=== PATIENT | male | born 1985 | race Caucasian/White ===

== ENCOUNTER 2021-01-06 15:35 | Emergency (ER) | payer OTHER ==
[~2021-01-06] VITALS: Ht 175.3 cm; Wt 81.7 kg
== END 2021-01-06 17:05 | disposition home or self-care (01) ==
LOC: ED 15:35
DX: T67.5XXA Heat exhaustion, unspecified, initial encounter (principal); E86.0 Dehydration; F17.200 Nicotine dependence, unspecified, uncomplicated
CPT/HCPCS: 99284

== ENCOUNTER 2021-06-28 11:06 | Emergency (ER) | payer MEDICAID ==
[~2021-06-28] VITALS: Ht 175.3 cm; Wt 81.7 kg
[2021-06-28] MEDS ORDERED: DRIZALMA SPRINK30 MG PO (12:59)
[2021-06-28] MEDS ORDERED: OLANZAPINE5 MG PO (12:59)
[2021-06-28] MEDS ORDERED: BUSPIRONE HCL10 MG PO (12:59)
--- NOTE | 2021-06-29 07:21 | EKG ---
[facility] [address] [facility] [place], [place] [address] Signed Normal sinus rhythm Normal ECG No previous ECGs available Confirmed by LINSEY DUNN MD ([id number] on 06/29/2021 7:21:18 AM Electronically Signed By: LINSEY DUNN MD 06/29/21720 PATIENT NAME: KRISSMIKAEL FARHAD Electrocardiogram DATE OF : 83 PHYSICIAN: LINSEY DUNN MD REPORT #: [id number] REPORT IS CONFIDENTIAL AND NOT TO BE RELEASED WITHOUT AUTHORIZATION
== END 2021-07-01 14:37 | disposition short-term general hospital (02) ==
LOC: ED 11:06
DX: R45.851 Suicidal ideations (principal); Z20.822 Contact with and (suspected) exposure to COVID-19; F17.200 Nicotine dependence, unspecified, uncomplicated; Z79.899 Other long term (current) drug therapy
CPT/HCPCS: 80053; 81001; 85025; 93005; 93010; 99285-25; A9270; A9270-GY; C9803; U0003